=== PATIENT | female | born 1935 | race Two or more races ===

== ENCOUNTER → 2025-04-04 | Outpatient (CLI) | payer MEDICAID, SELFPAY ==
--- NOTE | 2025-04-04 12:40 | XR_ITS ---
Examination: Bone densitometry Date and time of exam:April 04, 2025 1302 hours INDICATIONS: Menopause age 55 Technique: Lumbar spine and hip total bone mineralization values of an calculated. Peak reference and age match control results have been displayed. Findings: Lumbar spine total bone mineralization is0.798 gm/cm2. This is 2.3 standard deviations below peak reference. Hip total bone mineralization is 0.727 gm/cm2 This is 1.8 standard deviations below peak reference. Impression: There is osteopenia based on lumbar spine measurements. There is osteoporosis based on hip measurements
== END | disposition home or self-care (01) ==
PROVIDERS: PCP Family Medicine; Referring Provider Family Medicine; Visit Provider Family Medicine
DX: Z13.820 Encounter for screening for osteoporosis (principal); M85.88 Other specified disorders of bone density and structure, other site; M81.0 Age-related osteoporosis without current pathological fracture
CPT/HCPCS: 77080